=== PATIENT | male | born 1995 | race Two or more races ===

== ENCOUNTER 2025-04-07 22:14 | Emergency (ER) | payer SELFPAY ==
[2025-04-07 22:16] VITALS: BMI 33.3
--- NOTE | 2025-04-07 23:30 | PC.NURSE ---
pt did not answer when name was called and was not found outside.
--- NOTE | 2025-04-07 23:41 | PD.EDADDENDU ---
Emergency Room Addendum Addendum Narrative: When I looked for the patient for evaluation, I was told he eloped. Duran Reno MD
--- NOTE | 2025-04-08 00:06 | PC.NURSE ---
pt did not answer when name was called and was not found outside
--- NOTE | 2025-04-08 00:45 | PC.NURSE ---
CALLED PATIENT IN THE LOBBY AND OUTSIDE, NO ANSWER RECIEVED.
== END 2025-04-08 00:46 | disposition left against medical advice (07) ==
PROVIDERS: Emergency Provider Emergency Medicine
DX: Z53.21 Procedure and treatment not carried out due to patient leaving prior to being seen by health care provider (principal)